=== PATIENT | female | born 1940 | race Two or more races ===

== ENCOUNTER 2017-12-02 15:35 | Inpatient (IN) | payer BC ==
[~2017-12-02] VITALS: Ht 160 cm; Wt 41.8 kg
[2017-12-02 18:29] VITALS: BP 145/66
[2017-12-02] MEDS: SODIUM CHLORIDE 0.9% 1,000 ML IV SCH (19:19)
[2017-12-02] MEDS ORDERED: hydrALAzine 20 MG/ML, 1ML IVPush PRN (19:30)
[2017-12-02] MEDS ORDERED: MAGNESIUM CITRATE 300ML ORAL SOL PO PRN (19:30)
[2017-12-02] MEDS ORDERED: ONDANSETRON 2MG/ML, 2ML IVPush PRN (19:30)
[2017-12-02] MEDS ORDERED: PLEASE ENTER HEIGHT AND WEIGHT MC SCH (20:00)
[2017-12-02] MEDS ORDERED: PLEASE ENTER ALLERGIES MC SCH ×2 (20:00→21:00)
[2017-12-02 20:21] VITALS: BP 158/67
[2017-12-02] MEDS ORDERED: GASTROGRAFIN 120 ML SOLN PO ONE (20:51)
[2017-12-02] MEDS: PANTOPROZOLE 40MG TABLET PO SCH (22:14)
[2017-12-02] MEDS: HEPARIN 5,000 UNITS/ML, 1ML SQ SCH (22:14)
[2017-12-02] MEDS: ACETAMINOPHEN 325 MG TABLET PO PRN (23:23)
[2017-12-03 01:59] VITALS: BP 159/72
[2017-12-03] MEDS: ACETAMINOPHEN 325 MG TABLET PO PRN ×3 (04:27→13:30)
[2017-12-03] MEDS ORDERED: MORPHINE SULFATE 4 MG/ML, 1ML IVPush PRN (05:00)
[2017-12-03 05:20] LABS: BASOPHILS # (AUTO) 0.01 x10^3/uL (0-0.1); BASOPHILS % (AUTO) 0 % (0-1); EOSINOPHILS % (AUTO) 1 % (1-7); LYMPHOCYTES # (AUTO) 2.58 x10^3/uL (1-3.4); LYMPHOCYTES % (AUTO) 33 % (22-44); MD NO; MEAN CORPUSCULAR HEMOGLOBIN 28.8 pg (27.0-34.8); MEAN CORPUSCULAR HGB CONC 33.3 g/dL (32.4-35.8); MEAN CORPUSCULAR VOLUME 86.6 fL (80-100); MONOCYTES # (AUTO) 0.37 x10^3/uL (0.2-0.8); MONOCYTES % (AUTO) 5 % (2-9); NEUTROPHILS # (AUTO) 4.72 x10^3/uL (1.8-6.8); NEUTROPHILS % (AUTO) 61 % (42-75); PLATELET COUNT 239 x10^3/uL (130-400); RED CELL DISTRIBUTION WIDTH 13.1 % (9.6-15.2)
[2017-12-03 05:24] LABS: CHLORIDE 108 mmol/L (98-107)
[2017-12-03 05:31] LABS: ALANINE AMINOTRANSFERASE 20 U/L (12-78); ALBUMIN 3.4 g/dL (3.4-5.0); ALKALINE PHOSPHATASE 108 U/L (45-117); ANION GAP 9 mmol/L (5-15); BILIRUBIN,TOTAL 0.9 mg/dL (0.2-1.0); CREATININE 0.69 mg/dL (0.55-1.02)
[2017-12-03] MEDS: ASPIRIN 81 MG TABLET EC PO SCH (06:11)
[2017-12-03] MEDS: LEVOTHYROXINE 25 MCG TABLET PO SCH (06:11)
[2017-12-03] MEDS: HEPARIN 5,000 UNITS/ML, 1ML SQ SCH ×2 (06:12→18:43)
[2017-12-03 07:43] VITALS: BP 154/70
[2017-12-03] MEDS: PANTOPROZOLE 40MG TABLET PO SCH ×2 (09:40→19:36)
[2017-12-03] MEDS: SODIUM CHLORIDE 0.9% 1,000 ML IV SCH ×2 (09:40→19:37)
[2017-12-03] MEDS: AMLODIPINE 5 MG TABLET PO SCH (09:40)
[2017-12-03 09:51] LABS: FREE T4 (FREE THYROXINE) 1.23 ng/dL (0.76-1.46); THYROID STIMULATING HORMONE 1.86 mIU/L (0.358-3.740)
[2017-12-03 13:32] VITALS: BP 131/67
[2017-12-03 19:33] VITALS: BP 135/62
[2017-12-04 01:08] VITALS: BP 156/66
[2017-12-04] MEDS: ACETAMINOPHEN 325 MG TABLET PO PRN ×3 (01:34→12:34)
[2017-12-04] MEDS: HEPARIN 5,000 UNITS/ML, 1ML SQ SCH ×2 (01:39→10:30)
[2017-12-04 05:32] LABS: BASOPHILS # (AUTO) 0.02 x10^3/uL (0-0.1); BASOPHILS % (AUTO) 0 % (0-1); EOSINOPHILS # (AUTO) 0.08 x10^3/uL (0-0.4); EOSINOPHILS % (AUTO) 2 % (1-7); LYMPHOCYTES # (AUTO) 2.24 x10^3/uL (1-3.4); LYMPHOCYTES % (AUTO) 40 % (22-44); MD NO; MEAN CORPUSCULAR HEMOGLOBIN 28.5 pg (27.0-34.8); MEAN CORPUSCULAR VOLUME 86.6 fL (80-100); MONOCYTES # (AUTO) 0.34 x10^3/uL (0.2-0.8); MONOCYTES % (AUTO) 6 % (2-9); NEUTROPHILS # (AUTO) 2.89 x10^3/uL (1.8-6.8); NEUTROPHILS % (AUTO) 52 % (42-75); PLATELET COUNT 239 x10^3/uL (130-400); RED BLOOD COUNT 4.66 x10^6/uL (3.82-5.3); RED CELL DISTRIBUTION WIDTH 13.1 % (9.6-15.2)
[2017-12-04 05:34] LABS: ALBUMIN 3.1 g/dL (3.4-5.0); ANION GAP 7 mmol/L (5-15); CHLORIDE 111 mmol/L (98-107)
[2017-12-04 05:52] LABS: ALANINE AMINOTRANSFERASE 18 U/L (12-78); ALKALINE PHOSPHATASE 92 U/L (45-117); BILIRUBIN,TOTAL 0.6 mg/dL (0.2-1.0); CREATININE 0.77 mg/dL (0.55-1.02); TOTAL PROTEIN 6.5 g/dL (6.4-8.2)
[2017-12-04] MEDS: ASPIRIN 81 MG TABLET EC PO SCH (05:58)
[2017-12-04] MEDS: SODIUM CHLORIDE 0.9% 1,000 ML IV SCH (05:58)
[2017-12-04] MEDS: LEVOTHYROXINE 25 MCG TABLET PO SCH (05:58)
[2017-12-04 06:50] VITALS: BP 158/79
[2017-12-04] MEDS: PANTOPROZOLE 40MG TABLET PO SCH (08:00)
[2017-12-04] MEDS: AMLODIPINE 5 MG TABLET PO SCH (08:01)
[2017-12-04] MEDS ORDERED: LEVO25TA2 PO ×2 (10:30→12:16)
[2017-12-04] MEDS ORDERED: AMLO5TAB2 PO ×2 (10:30→11:00)
[2017-12-04] MEDS ORDERED: PANT40TA5 PO (10:30)
[2017-12-04] MEDS ORDERED: ASPI-621 PO (10:30)
[2017-12-04] MEDS ORDERED: SENN17.23 PO (10:31)
[2017-12-04] MEDS ORDERED: POLY17PO5 PO (10:32)
[2017-12-04] MEDS ORDERED: BISA10SU2 PR (10:33)
[2017-12-04] MEDS ORDERED: THEOPHYLLINE 100 MG CAP.ER.24H PO PRN (11:30)
[2017-12-04] MEDS ORDERED: HYDROcodone/APAP 10/325 MG TABLET PO PRN (11:30)
[2017-12-04] MEDS ORDERED: PENTOXIFYLLINE 400 MG TABLET.ER PO PRN (11:30)
[2017-12-04] MEDS ORDERED: PRED5TAB PO (12:16)
[2017-12-04] MEDS ORDERED: PENT400T9 PO (12:16)
[2017-12-04] MEDS ORDERED: ALPR0.254 PO (12:16)
[2017-12-04] MEDS ORDERED: HYDR-3307 PO (12:16)
[2017-12-05] MEDS ORDERED: LEVOTHYROXINE 25 MCG TABLET PO SCH (06:00)
[2017-12-05] MEDS ORDERED: AMLODIPINE 2.5 MG TABLET PO SCH (09:00)
== END 2017-12-04 12:54 | disposition home or self-care (01) | DRG 392 ==
LOC: 4NOR 17:56 → DCLOUNGE 12-04 12:40
PROVIDERS: ADMIT Internal Medicine Pulmonary Disease; ATTEND Hospitalist
DX: K59.03 Drug induced constipation (principal); J44.9 Chronic obstructive pulmonary disease, unspecified; E44.1 Mild protein-calorie malnutrition; Z68.1 Body mass index [BMI] 19.9 or less, adult; E03.9 Hypothyroidism, unspecified; G89.29 Other chronic pain; I10 Essential (primary) hypertension; K21.9 Gastro-esophageal reflux disease without esophagitis; K57.90 Diverticulosis of intestine, part unspecified, without perforation or abscess without bleeding; M47.9 Spondylosis, unspecified; T40.605A Adverse effect of unspecified narcotics, initial encounter; Z79.891 Long term (current) use of opiate analgesic; Z90.49 Acquired absence of other specified parts of digestive tract; Z90.710 Acquired absence of both cervix and uterus
CPT/HCPCS: 36415; 74270; 80053; 83735; 84100; 84439; 84443; 85025; J1644; Q9963; J7030